=== PATIENT | female | born 1990 | race Caucasian/White ===

== ENCOUNTER → 2016-09-18 | Outpatient (CLI) | payer OTHER ==
--- NOTE | 2016-09-18 09:26 | MM ---
Reason for exam: clinical finding. History: Patient is nulliparous. Taking hormonal contraceptives beginning at age 17. Indicated problem(s): lump or thickening in the right breast. Physical Findings: Nurse Summary: 0.5cm nodule in the right breast at 1, 2 and 5 o'clock (nurse kp). MG 3D Diag Mammo W/Cad JOSE L Bilateral CC and MLO view(s) were taken. The breast tissue is heterogeneously dense. This may lower the sensitivity of mammography. These results were verbally communicated with the patient and result sheet given to the patient on 09/18/16. ASSESSMENT: Negative, BI-RAD 1 RECOMMENDATION: Routine screening mammogram of both breasts at age 34. Manage patient on a clinical basis.
--- NOTE | 2016-09-18 09:27 | USB ---
Reason for exam: clinical finding. History: Patient is nulliparous. Taking hormonal contraceptives beginning at age 17. Indicated problem(s): lump or thickening in the right breast. US Breast RT Right breast ultrasound including all four quadrants, the retroareolar region and axilla demonstrates no cystic or solid lesion seen. These results were verbally communicated with the patient and result sheet given to the patient on 09/18/16. ASSESSMENT: Negative, BI-RAD 1 RECOMMENDATION: Routine screening mammogram of both breasts at age 34. Manage patient on a clinical basis.
== END | disposition home or self-care (01) ==
LOC: RADMAMWWP 08:15
PROVIDERS: ATTEND Family Medicine
DX: N63 Unspecified lump in breast (principal); N64.4 Mastodynia
CPT/HCPCS: 76641; G0204; G0279

== ENCOUNTER 2019-10-22 20:54 | Emergency (ER) | payer MEDICAID ==
[2019-10-22 21:07] VITALS: TEMP 98.5
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
[2019-10-22 23:08] VITALS: BP 99/61; PULSE 82; RESP 16
== END 2019-10-22 23:11 | disposition home or self-care (01) ==
LOC: EC 20:54
DX: S10.93XA Contusion of unspecified part of neck, initial encounter (principal); R07.89 Other chest pain; R13.10 Dysphagia, unspecified; M25.512 Pain in left shoulder; M25.511 Pain in right shoulder; K21.9 Gastro-esophageal reflux disease without esophagitis; Z79.899 Other long term (current) drug therapy; Z88.8 Allergy status to other drugs, medicaments and biological substances; Y04.2XXA Assault by strike against or bumped into by another person, initial encounter; Y92.009 Unspecified place in unspecified non-institutional (private) residence as the place of occurrence of the external cause
CPT/HCPCS: 81025; 70491; 99284; Q9967

== ENCOUNTER 2023-11-26 11:59 | Emergency (ER) | payer BC ==
--- NOTE | 2023-11-26 12:23 | ED ---
Abdominal Pain HPI - General Source: patient, RN notes reviewed Mode of arrival: ambulatory Limitations: no limitations - History of Present Illness MD Complaint: abdominal pain <Trista Jim - Last Filed: 11/26/23 12:21> - General Source: patient, RN notes reviewed Mode of arrival: ambulatory Limitations: no limitations <Lyndsey Lomax - Last Filed: 11/26/23 17:40> - General Chief Complaint: Abdominal Pain Stated Complaint: Abd pain Time Seen by Provider: 11/26/23 12:15 - History of Present Illness Initial Comments: Quick Note: This is a 33-year-old female who presents to the emergency department for abdominal pain. States that this started on November 13, and she went to [facility] emergency department earlier this week. She had an ultrasound and CT scan done demonstrating sludge in her gallbladder and a gallbladder polyp. She followed up with her PCP, however her PCP is having difficulty obtaining the records from [facility]. She was told to take reflux medication, which she has been doing without any relief, and the pain is continuing to get worse. Pain is localized to the right upper quadrant. (Trista Jim) 33 year old female presented to the ER with a chief complaint of right upper quadrant abdominal pain. She states the pain started on November 13 and has been persistent. She states she has not 1 full meal since then and has been eating bland foods in small portions. She is also endorsing nausea. She has been taking omeprazole and Pepcid as she believed it was an ulcer. She was seen at [facility] and had a gallbladder ultrasound which showed sludge and a 3 cm polyp, per patient. Followed up with PCP earlier this week and was told to continue medications and to present to the ER if symptoms worsen. Patient states last night she had an extreme bout of right upper quadrant abdominal pain after eating with nausea and vomiting which brought her to the ER today. Denies any fevers, chest pain, shortness of breath, urinary complaints or peripheral edema. (Lyndsey Lomax) - Related Data Home Medications Medication Instructions Recorded Confirmed Control (Unknown Dose) 1 tab PO DAILY 03/27/15 03/29/15 RX: Hyoscyamine Sulfate [Levsin] 0.125 mg PO DIRECTED PRN 03/27/15 03/29/15 Previous Rx's Medication Instructions Recorded Ondansetron Odt [Zofran Odt] 4 mg PO Q8HR PRN #10 tab 11/26/23 Sucralfate [Carafate] 1 gm PO BID #10 tablet 11/26/23 Allergies Allergy/AdvReac Type Severity Reaction Status Date / Time Proton Pump Inhibitors Allergy Mild Unknown Verified 11/26/23 12:18 Review of Systems ROS Other: All systems not noted in ROS Statement are negative. <Trista Jim - Last Filed: 11/26/23 12:21> ROS Other: All systems not noted in ROS Statement are negative. <Lyndsey Lomax - Last Filed: 11/26/23 17:40> ROS Statement: Those systems with pertinent positive or pertinent negative responses have been documented in the HPI. Past Medical History Past Medical History: GERD/Reflux Additional Past Medical History / Comment(s): NAUSEA, HX OF SYNCOPE WITH MENSES History of Any Multi-Drug Resistant Organisms: None Reported Additional Past Surgical History / Comment(s): WISDOM TEETH Past Anesthesia/Blood Transfusion Reactions: No Reported Reaction Past Psychological History: No Psychological Hx Reported Past Alcohol Use History: Occasional Past Drug Use History: None Reported <Trista Jim - Last Filed: 11/26/23 12:21> General Exam Limitations: no limitations <Trista Jim - Last Filed: 11/26/23 12:21> General appearance: alert, in no apparent distress Respiratory exam: Present: normal lung sounds bilaterally. Absent: respiratory distress, wheezes, rales, rhonchi, stridor Cardiovascular Exam: Present: regular rate, normal rhythm, normal heart sounds. Absent: systolic murmur, diastolic murmur, rubs, gallop, clicks GI/Abdominal exam: Present: soft, tenderness (RUQ), normal bowel sounds. Absent: distended, guarding, rebound, rigid Neurological exam: Present: alert, oriented X3, CN II-XII intact Skin exam: Present: warm, dry, intact, normal color. Absent: rash <Lyndsey Lomax - Last Filed: 11/26/23 17:40> - General Exam Comments Initial Comments: Visual Physical Exam Vital signs reviewed General: Well-appearing, nontoxic, no acute distress. Head: Normocephalic, atraumatic Eyes: PERRLA, EOMI ENT: Airway patent Chest: Nonlabored breathing Skin: No visual rash, normal skin tone Neuro: Alert and oriented 3 Musculoskeletal: No gross abnormalities (Trista Jim) Course <Lyndsey Lomax - Last Filed: 11/26/23 17:40> Vital Signs 11/26/23 11/26/23 12:15 15:44 Temperature 98.4 F 99.2 F Pulse Rate 85 82 Respiratory 16 16 Rate Blood Pressure 119/77 106/73 O2 Sat by Pulse 100 100 Oximetry - Reevaluation(s) Reevaluation #1: 11/26/23 16:[address] Alfaro who advises on outpatient management. He states he can see patient in the office on 11-30-2023. (Lyndsey Lomax) Medical Decision Making <Trista Jim - Last Filed: 11/26/23 12:21> - Lab Data Result diagrams: 11/26/23 13:19 11/26/23 13:19 - Radiology Data Radiology results: report reviewed, image reviewed <Lyndsey Lomax - Last Filed: 11/26/23 17:40> - Medical Decision Making I performed the QuickNote portion of this chart. Signed Trista Jim PA-C. (Trista Jim) Was pt. sent in by a medical professional or institution ([facility], [employer], urgent care, hospital, or long term...) When possible be specific @ -No Did you speak to anyone other than the patient for history (EMS, parent, family, police, friend...)? What history was obtained from this source @ -Patient's mother aiding in HPI Did you review nursing and triage notes (agree or disagree)? Why? @ -I reviewed and agree with nursing and triage notes Were old charts reviewed (outside hosp., previous admission, EMS record, old EKG, old radiological studies, urgent care reports/EKG's, long term records)? Report findings @ -No old charts were reviewed Differential Diagnosis (chest pain, altered mental status, abdominal pain women, abdominal pain men, vaginal bleeding, weakness, fever, dyspnea, syncope, headache, dizziness, GI bleed, back pain, seizure, CVA, palpatations, mental health, musculoskeletal)? @ -Differential Abdominal Pain Women: Appendicitis, Cholecystitis, diverticulosis, ischemic bowel, pancreatitis, hepatitis, UTI, gastroenteritis, AAA, incarcerated hernia, bowel obstruction, constipation, inflammatory bowel, hepatitis, peptic ulcer disease, splenic infarction, perforated viscus, vulvitis, ovarian torsion, PID, kidney stone, placenta abruption, this is not meant to be an all-inclusive list EKG interpreted by me (3pts min.). @ -None X-rays interpreted by me (1pt min.). @ -None done CT interpreted by me (1pt min.). @ -None done U/S interpreted by me (1pt. min.). @ -Gallbladder ultrasound significant for 0.2cm polyp. No sludge or stones. No evidence of acute process. What testing was considered but not performed or refused? (CT, X-rays, U/S, labs)? Why? @ -None What meds were considered but not given or refused? Why? @ -None Did you discuss the management of the patient with other professionals (professionals i.e. , PA, [employer], lab, RT, psych nurse, social sciences instructor, cycle counter, teacher, hotel security officer, bilingual case manager)? Give summary @ -Yes, case discussed with Dr. Alfaro who advises outpatient management. Was smoking cessation discussed for >3mins.? @ -No Was critical care preformed (if so, how long)? @ -No Were there social determinants of health that impacted care today? How? (Homelessness, low income, unemployed, alcoholism, drug addiction, transportation, low edu. Level, literacy, decrease access to med. care, long-term, rehab)? @ -No Was there de-escalation of care discussed even if they declined (Discuss DNR or withdrawal of care, Hospice)? DNR status @ -No What co-morbidities impacted this encounter? (DM, HTN, Smoking, COPD, CAD, Cancer, CVA, ARF, Chemo, Hep., AIDS, mental health diagnosis, sleep apnea, morbid obesity)? @ -None Was patient admitted / discharged? Hospital course, mention meds given and route, prescriptions, significant lab abnormalities, going to OR and other pertinent info. @ -Discharged. Patient is a 33 year old female presenting to the ER with a chief complaint of RUQ abdominal pain. History physical exam completed. Vitals stable. Patient no signs of acute distress and nontoxic.. Patient mildly tender to right upper quadrant palpation. Labs obtained significant for white blood cell count 13.6 otherwise unremarkable. Urine without signs of infection. Gallbladder ultrasound 0.2 cm polyp visualized. No other acute process. Patient refused symptomatic treatment in the ER. Case discussed with Dr. Alfaro who advised on outpatient follow-up on 11/30/23. Results discussed wtih patient, all questions answered. Zofran and carafate prescribed. Return parameters discussed. Patient discharged stable condition with follow-up to Dr. Alfaro. Patient and mother, at bedside, verbally expressed understanding and agreement with care plan. Case discussed with ED attending, Dr. Gerardo. Undiagnosed new problem with uncertain prognosis? @ -No Drug Therapy requiring intensive monitoring for toxicity (Heparin, Nitro, Insulin, Cardizem)? @ -No Were any procedures done? @ -No Diagnosis/symptom? @ -Biliary colic Acute, or Chronic, or Acute on Chronic? @ -Acute Uncomplicated (without systemic symptoms) or Complicated (systemic symptoms)? @ -Uncomplicated Side effects of treatment? @ -No Exacerbation, Progression, or Severe Exacerbation? @ -No Poses a threat to life or bodily function? How? (Chest pain, [place], [place], pneumonia, PE, COPD, DKA, ARF, appy, cholecystitis, CVA, Diverticulitis, Homicidal, Suicidal, threat to staff... and all critical care pts) @ -No (Lyndsey Lomax) - Lab Data Lab Results 11/26/23 11/26/23 11/26/23 Range/Units 12:52 12:52 13:19 WBC 13.6 H (3.8-10.6) k/uL RBC 4.58 (3.80-5.40) m/uL Hgb 13.9 (11.4-16.0) gm/dL Hct 43.0 (34.0-46.0) % MCV 93.9 (80.0-100.0) fL MCH 30.4 (25.0-35.0) pg MCHC 32.3 (31.0-37.0) g/dL RDW 12.3 (11.5-15.5) % Plt Count 277 (150-450) k/uL MPV 7.9 Neutrophils % (Manual) 47 % Lymphocytes % (Manual) 23 % Monocytes % (Manual) 4 % Eosinophils % (Manual) 26 % Neutrophils # (Manual) 6.39 (1.3-7.7) k/uL Lymphocytes # (Manual) 3.13 (1.0-4.8) k/uL Monocytes # (Manual) 0.54 (0-1.0) k/uL Eosinophils # (Manual) 3.54 H (0-0.7) k/uL Nucleated RBCs 0 (0-0) /100 WBC Manual Slide Review Performed Sodium (137-145) mmol/L Potassium (3.5-5.1) mmol/L Chloride (98-107) mmol/L Carbon Dioxide (22-30) mmol/L Anion Gap mmol/L BUN (7-17) mg/dL Creatinine (0.52-1.04) mg/dL Est GFR (CKD-EPI)AfAm (>60 ml/min/1.73 sqM) Est GFR (CKD-EPI)NonAf (>60 ml/min/1.73 sqM) Glucose (74-99) mg/dL Plasma Lactic Acid Hever (0.7-2.0) mmol/L Calcium (8.4-10.2) mg/dL Total Bilirubin (0.2-1.3) mg/dL AST (14-36) U/L ALT (4-34) U/L Alkaline Phosphatase (38-126) U/L Total Protein (6.3-8.2) g/dL Albumin (3.5-5.0) g/dL Amylase (30-110) U/L Lipase (23-300) U/L Urine Color Colorless Urine Appearance Cloudy H (Clear) Urine pH 6.5 (5.0-8.0) Ur Specific [place] 1.001 (1.001-1.035) Urine Protein Negative (Negative) Urine Glucose (UA) Negative (Negative) Urine Ketones Negative (Negative) Urine Blood Negative (Negative) Urine Nitrite Negative (Negative) Urine Bilirubin Negative (Negative) Urine Urobilinogen <2.0 (<2.0) mg/dL Ur Leukocyte Esterase Small H (Negative) Urine RBC 5 (0-5) /hpf Urine WBC 13 H (0-5) /hpf Ur Squamous Epith Cells 16 H (0-4) /hpf Urine Bacteria Many H (None) /hpf Urine HCG, Qual Not Detected (Not Detectd) 11/26/23 11/26/23 Range/Units 13:19 13:19 WBC (3.8-10.6) k/uL RBC (3.80-5.40) m/uL Hgb (11.4-16.0) gm/dL Hct (34.0-46.0) % MCV (80.0-100.0) fL MCH (25.0-35.0) pg MCHC (31.0-37.0) g/dL RDW (11.5-15.5) % Plt Count (150-450) k/uL MPV Neutrophils % (Manual) % Lymphocytes % (Manual) % Monocytes % (Manual) % Eosinophils % (Manual) % Neutrophils # (Manual) (1.3-7.7) k/uL Lymphocytes # (Manual) (1.0-4.8) k/uL Monocytes # (Manual) (0-1.0) k/uL Eosinophils # (Manual) (0-0.7) k/uL Nucleated RBCs (0-0) /100 WBC Manual Slide Review Sodium 140 (137-145) mmol/L Potassium 3.9 (3.5-5.1) mmol/L Chloride 104 (98-107) mmol/L Carbon Dioxide 28 (22-30) mmol/L Anion Gap 8 mmol/L BUN 7 (7-17) mg/dL Creatinine 0.66 (0.52-1.04) mg/dL Est GFR (CKD-EPI)AfAm >90 (>60 ml/min/1.73 sqM) Est GFR (CKD-EPI)NonAf >90 (>60 ml/min/1.73 sqM) Glucose 89 (74-99) mg/dL Plasma Lactic Acid Hever 0.7 (0.7-2.0) mmol/L Calcium 10.1 (8.4-10.2) mg/dL Total Bilirubin 0.4 (0.2-1.3) mg/dL AST 24 (14-36) U/L ALT 16 (4-34) U/L Alkaline Phosphatase 64 (38-126) U/L Total Protein 8.2 (6.3-8.2) g/dL Albumin 4.9 (3.5-5.0) g/dL Amylase 60 (30-110) U/L Lipase 117 (23-300) U/L Urine Color Urine Appearance (Clear) Urine pH (5.0-8.0) Ur Specific [place] (1.001-1.035) Urine Protein (Negative) Urine Glucose (UA) (Negative) Urine Ketones (Negative) Urine Blood (Negative) Urine Nitrite (Negative) Urine Bilirubin (Negative) Urine Urobilinogen (<2.0) mg/dL Ur Leukocyte Esterase (Negative) Urine RBC (0-5) /hpf Urine WBC (0-5) /hpf Ur Squamous Epith Cells (0-4) /hpf Urine Bacteria (None) /hpf Urine HCG, Qual (Not Detectd) Disposition <Trista Jim - Last Filed: 11/26/23 12:21> Is patient prescribed a controlled substance at d/c from ED?: No Time of Disposition: 15:51 <Lyndsey Lomax - Last Filed: 11/26/23 17:40> Clinical Impression: Biliary colic Disposition: HOME SELF-CARE Condition: Stable Instructions (If sedation given, give patient instructions): Biliary Colic (ED), HIDA Scan (DC) Additional Instructions: Take Zofran every 6-8 hours for nausea. Follow-up with Dr. Alfaro on 11-30-2023. Return to the ER for any new or worsening concerns. Prescriptions: Sucralfate [Carafate] 1 gm PO BID #10 tablet Ondansetron Odt [Zofran Odt] 4 mg PO Q8HR PRN #10 tab PRN Reason: Nausea Referrals: Royce Hatfield DO [Primary Care Provider] - 1-2 days Chuck Alfaro MD [STAFF PHYSICIAN] - 1-2 days
[2023-11-26 12:55] VITALS: RESP 16
[2023-11-26 13:09] LABS: Appearance,Urine Cloudy (Clear); Bacteria,Urine Many /hpf; Bilirubin,Urine Negative (Negative); Blood,Urine Negative (Negative); Color,Urine Colorless; Glucose,Urine (UA) Negative (Negative); Ketones,Urine Negative (Negative); Leukocyte Esterase,Urine Small (Negative); Nitrite,Urine Negative (Negative); PH, Urine 6.5 (5.0-8.0); Protein,Urine Negative (Negative); RBC,Urine 5 /hpf (0-5); Specific Gravity,Urine 1.001 (1.001-1.035); Squamous Epithelial Cell,Urine 16 /hpf (0-4); Urobilinogen,Urine <2.0 mg/dL (<2.0); WBC,Urine 13 /hpf (0-5)
--- NOTE | 2023-11-26 13:21 | US ---
EXAMINATION TYPE: US gallbladder DATE OF EXAM: 11/26/2023 COMPARISON: CLINICAL INDICATION: Female, 33 years old with history of RUQ pain; Pain. Patient states she went to [facility] 5 days ago and they saw GB sludge and polyp. Patient states she is unable to eat. TECHNIQUE: Multiple sonographic images of the right upper quadrant are obtained. FINDINGS: EXAM MEASUREMENTS: Liver Length: 12.6 cm Gallbladder Wall: 0.2 cm CBD: 0.3 cm Right Kidney: 9.7 x 4.1 x 5.4 cm Pancreas: Echogenic in appearance Liver: wnl Gallbladder: No sludge visualized at todays exam. Polyp= 0.2 cm Evidence for sonographic Hawthorne's sign: neg CBD: wnl Right Kidney: Mild hydronephrosis vs dilated renal pelvis IMPRESSION: 1. No evidence for acute process. 2. Right extrarenal pelves. No definitive hydronephrosis.
[2023-11-26 13:28] LABS: HGB 13.9 gm/dL (11.4-16.0); MCH 30.4 pg (25.0-35.0); MCHC 32.3 g/dL (31.0-37.0); MCV 93.9 fL (80.0-100.0); Mean Platelet Volume 7.9; Platelet Count 277 k/uL (150-450); RBC 4.58 m/uL (3.80-5.40); RDW 12.3 % (11.5-15.5); WBC 13.6 k/uL (3.8-10.6)
[2023-11-26 13:50] LABS: ALT 16 U/L (4-34); AST 24 U/L (14-36); African American GFR (CKD) >90 (>60 ml/min/1.73 sqM); Albumin 4.9 g/dL (3.5-5.0); Alkaline Phosphatase 64 U/L (38-126); Amylase 60 U/L (30-110); Anion Gap 8 mmol/L; Blood Urea Nitrogen 7 mg/dL (7-17); Calcium 10.1 mg/dL (8.4-10.2); Carbon Dioxide 28 mmol/L (22-30); Chloride 104 mmol/L (98-107); Glucose 89 mg/dL (74-99); Lipase 117 U/L (23-300); Non-African American GFR(CKD) >90 (>60 ml/min/1.73 sqM); Potassium 3.9 mmol/L (3.5-5.1); Sodium 140 mmol/L (137-145); Total Bilirubin 0.4 mg/dL (0.2-1.3); Total Protein 8.2 g/dL (6.3-8.2)
[2023-11-26 14:30] LABS: Eosinophils # (M) 3.54 k/uL (0-0.7); Lymphocytes # (M) 3.13 k/uL (1.0-4.8); Monocytes # (M) 0.54 k/uL (0-1.0); Neutrophils # (M) 6.39 k/uL (1.3-7.7); Neutrophils % (M) 47 %; Nucleated Red Blood Cells 0 /100 WBC (0-0); Total Cells Counted 100
[2023-11-26 15:46] VITALS: BP 106/73; PULSE 82; TEMP 99.2
== END 2023-11-26 16:12 | disposition home or self-care (01) ==
LOC: EC 11:59
DX: K80.50 Calculus of bile duct without cholangitis or cholecystitis without obstruction (principal); Z91.048 Other nonmedicinal substance allergy status
CPT/HCPCS: 36415; 76705; 80053; 81001; 81025; 82150; 83605; 83690; 85025; 99284

== ENCOUNTER 2023-12-13 07:24 | Day surgery (SDC) | payer BC ==
[~2023-12-13 07:24] MED LIST: LACTATED RINGERS 1,000 ML IV SCH
[2023-12-13] MEDS: LACTATED RINGERS 1,000 ML IV ONE ×2 (08:06→10:22)
[2023-12-13] MEDS: ACETAMINOPHEN TAB 500 MG TAB PO PRN (08:10)
[2023-12-13] MEDS: DEXAMETHASONE SOD PHOSPHATE 4 MG/ML 1 ML VIAL IV ONE (08:10)
[2023-12-13] MEDS: HEPARIN SODIUM,PORCINE 5,000 UNIT/ML 1 ML VIAL SQ PRN (08:11)
[2023-12-13] MEDS: ONDANSETRON 4 MG/2 ML VIAL IVP ONE (08:11)
[2023-12-13] MEDS: SCOPOLAMINE 1 MG/72 HR PATCH TRANSDERM ONE (08:11)
[2023-12-13] MEDS: MIDAZOLAM 2 MG/2 ML VIAL IVP ONE (08:14)
[2023-12-13] MEDS ORDERED: ROCURONIUM 10 MG/ML (5 ML VIAL) IV ONE (08:39)
[2023-12-13] MEDS ORDERED: KETOROLAC 15 MG/ML 1 ML VIAL ONE (08:39)
[2023-12-13] MEDS ORDERED: GLYCOPYRROLATE 0.2 MG/ML 2 ML VIAL ONE (08:39)
[2023-12-13] MEDS ORDERED: LIDOCAINE 1% INJ 10MG/ML (20 ML MDV) ONE (08:39)
[2023-12-13] MEDS ORDERED: SUCCINYLCHOLINE CHLORIDE 200 MG/10 ML VIAL IV ONE (08:39)
[2023-12-13] MEDS ORDERED: NEOSTIGMINE 1 MG/ML 10 ML VIAL ONE (08:39)
[2023-12-13] MEDS ORDERED: PROPOFOL 10 MG/ML 20 ML VIAL IV ONE (08:39)
[2023-12-13] MEDS ORDERED: fentaNYL (PF) 50 MCG/ML 2 ML AMP ONE (08:39)
[2023-12-13] MEDS ORDERED: MIDAZOLAM 2 MG/2 ML VIAL ONE (08:39)
[2023-12-13] MEDS: LIDOCAINE 1%-EPI 1:100,000 20 ML VIAL SQ ONE (10:03)
--- NOTE | 2023-12-13 10:20 | P.OP ---
Date of Procedure: 12/13/23 Preoperative Diagnosis: cholecystitis Postoperative Diagnosis: cholecystitis Procedure(s) Performed: laparoscopic cholecystectomy Anesthesia: KAMRYN Surgeon: Chuck Alfaro Estimated Blood Loss (ml): 5 Pathology: other (gallbladder) Condition: stable Disposition: PACU Description of Procedure: The patient was placed on the operating table. The patient received a general endotracheal tube anesthesia. The patients abdomen was prepped and draped in the usual sterile fashion. Through an infraumbilical stab incision, the fascia of the anterior abdominal wall was grasped with a pair of Kochers and then the Veress needle was placed in the peritoneal cavity. Position of the Veress needle was confirmed with positive drop test. The abdomen was then insufflated. After adequate insufflation, the 10 mm trocar was placed in the peritoneal cavity. Following this the laparoscope was placed in the peritoneal cavity. The patient was placed in the head-up, right side up position and then a 5 mm trocar was placed in the right lateral and right subcostal position under direct visualization. A 8 mm trocar was placed in the epigastric position. The gallbladder was grasped in the fundus and infundibulum. Traction on the gallbladder was placed in the lateral and the cephalad positions. The triangle of Calot was visualized.. The cystic duct was bluntly dissected until the union of the cystic duct and common bile duct was seen. A critical view of safety was achieved. The cystic duct was then divided and sealed with the Harmonic scissors. A PDS Endoloop was then placed throughout the cystic duct stump. The cystic artery divided and sealed with the Harmonic scissors. The gallbladder was then removed from the liver bed using Harmonic scissors. The gallbladder was then extracted through the epigastric port site. Operative field was checked for any bleeding spots and Harmonic scissors was used to coagulate the liver bed. The abdomen was irrigated. The trocars were removed. The skin was closed using interrupted 3-0 Vicryl suture. Dermabond dressing were applied. The patient tolerated the procedure well.
[2023-12-13] MEDS: HYDROmorphone 0.5 MG/0.5 ML SYRINGE IVP PRN (10:31)
[2023-12-13 10:34] VITALS: TEMP 97
[2023-12-13] MEDS: IV FLUID CONTINUATION 950 ML IV ONE (11:14)
[2023-12-13 12:06] VITALS: RESP 16
[2023-12-13 12:52] VITALS: BP 96/63; PULSE 73
== END 2023-12-13 12:57 | disposition home or self-care (01) ==
LOC: OR 07:24
PROVIDERS: ATTEND Surgery
DX: K81.1 Chronic cholecystitis (principal); K21.9 Gastro-esophageal reflux disease without esophagitis; Z88.8 Allergy status to other drugs, medicaments and biological substances
CPT/HCPCS: 81025; 88304; 47562; J2250; J0330; J1644; J1100; J2710; J0690; J2405; J2001; J3010; J1885; J2704; J1170